=== PATIENT | male | born 1975 | race Caucasian/White ===

== ENCOUNTER 2022-02-09 07:21 | Outpatient (CLI) | payer BC ==
[2022-02-09 14:32] LABS: ALBUMIN 4.2 g/dL (3.2-5.5); ALBUMIN/GLOBULIN RATIO 1.3 (1.0-2.2); ALKALINE PHOSPHATASE 75 IU/L (42-121); ALT ALANINE AMINOTRANSFERASE 46 IU/L (10-60); AST ASPARTATE AMINOTRANSFERASE 28 IU/L (10-42); BUN - BLOOD UREA NITROGEN 13 mg/dL (6-20); CALCIUM 9.1 mg/dL (8.5-10.3); CARBON DIOXIDE - CO2 30 mmol/L (21-32); CHLORIDE 101 mmol/L (101-111); CHOL/HDL RATIO 3.4 (<5.0); CHOLESTEROL 128 mg/dL; CREATININE 1.1 mg/dL (0.6-1.2); GFR - MDRD 73 (>89); GLUCOSE 123 mg/dL (70-100); HDL CHOLESTEROL 38 mg/dL; LDL CHOLESTEROL,CALCULATED 72 mg/dL; LDL/HDL RATIO 1.9 (<3.6); POTASSIUM 3.6 mmol/L (3.5-5.0); SODIUM 139 mmol/L (135-145); TOTAL PROTEIN 7.5 g/dL (6.7-8.2); TRIGLYCERIDES 89 mg/dL; VLDL CHOLESTEROL 18 mg/dL
[2022-02-09 14:35] LABS: CREATININE,URINE 238.5 mg/dL; MICROALBUM/CREATININE RATIO,UR 8.4 ug/mg (<30.0)
[2022-02-09 14:38] LABS: T4 (THYROXINE) 7.24 ug/dL (6.09-12.23)
[2022-02-09 14:43] LABS: THYROID STIMULATING HORMONE 0.54 uIU/mL (0.34-5.60)
[2022-02-09 14:45] LABS: FREE T4 (FREE THYROXINE) 0.87 ng/dL (0.58-1.64)
[2022-02-09 20:01] LABS: ESTIMATED AVERAGE GLUCOSE 126 mg/dL (70-100)
== END 2022-02-09 07:22 | disposition home or self-care (01) ==
LOC: LAB.S 07:21
PROVIDERS: ATTEND Internal Medicine Endocrinology, Diabetes & Metabolism
DX: E11.65 Type 2 diabetes mellitus with hyperglycemia (principal)
CPT/HCPCS: 36415; 80053; 80061; 82043; 82570; 83036; 83721; 84436; 84439; 84443

== ENCOUNTER 2022-03-05 17:19 | Outpatient (CLI) | payer BC | END 2022-03-05 17:20 | disposition home or self-care (01) | LOC: LAB 17:19 | PROVIDERS: ATTEND Internal Medicine Endocrinology, Diabetes & Metabolism | DX: Z53.9 Procedure and treatment not carried out, unspecified reason (principal) ==

== ENCOUNTER 2022-03-05 17:28 | Outpatient (CLI) | payer BC ==
[2022-03-05 17:50] LABS: CALCIUM 9.3 mg/dL (8.5-10.3); CREATININE 1.2 mg/dL (0.6-1.2); POTASSIUM 3.4 mmol/L (3.5-5.0)
== END 2022-03-05 17:29 | disposition home or self-care (01) ==
LOC: LAB 17:28
PROVIDERS: ATTEND Internal Medicine Endocrinology, Diabetes & Metabolism
DX: N28.9 Disorder of kidney and ureter, unspecified (principal)
CPT/HCPCS: 36415; 80048

== ENCOUNTER 2022-06-15 07:09 | Outpatient (CLI) | payer BC ==
[2022-06-15 15:03] LABS: CALCIUM 9.8 mg/dL (8.5-10.3); POTASSIUM 3.8 mmol/L (3.5-5.0)
[2022-06-15 20:57] LABS: ESTIMATED AVERAGE GLUCOSE 123 mg/dL (70-100); HEMOGLOBIN A1c% 5.9 % (4.27-6.07)
== END 2022-06-15 07:10 | disposition home or self-care (01) ==
LOC: LAB.S 07:09
PROVIDERS: ATTEND Nurse Practitioner
DX: E11.9 Type 2 diabetes mellitus without complications (principal)
CPT/HCPCS: 36415; 80048; 83036

== ENCOUNTER 2023-02-05 13:53 | Outpatient (CLI) | payer BC ==
[2023-02-05 20:03] LABS: ALBUMIN/GLOBULIN RATIO 1.6 (1.0-2.2); ALKALINE PHOSPHATASE 67 IU/L (42-121); ALT ALANINE AMINOTRANSFERASE 48 IU/L (10-60); AST ASPARTATE AMINOTRANSFERASE 30 IU/L (10-42); BILIRUBIN,TOTAL 0.5 mg/dL (0.2-1.0); BUN - BLOOD UREA NITROGEN 14 mg/dL (6-20); CALCIUM 9.2 mg/dL (8.5-10.3); CARBON DIOXIDE - CO2 33 mmol/L (21-32); CHLORIDE 103 mmol/L (101-111); CHOL/HDL RATIO 3.6 (<5.0); CHOLESTEROL 122 mg/dL; CREATININE 1.2 mg/dL (0.6-1.3); GFR - MDRD 65 (>89); GLUCOSE 107 mg/dL (74-104); HDL CHOLESTEROL 34 mg/dL; LDL CHOLESTEROL,CALCULATED 50 mg/dL; LDL/HDL RATIO 1.5 (<3.6); POTASSIUM 3.6 mmol/L (3.5-4.5); SODIUM 141 mmol/L (135-145); TOTAL PROTEIN 6.5 g/dL (6.4-8.9); TRIGLYCERIDES 190 mg/dL (48-352); VLDL CHOLESTEROL 38 mg/dL
[2023-02-05 20:35] LABS: ESTIMATED AVERAGE GLUCOSE 126 mg/dL (70-100)
[2023-02-06 11:03] LABS: BASOPHILS % (AUTO) 0.5 %; EOSINOPHILS # (AUTO) 0.4 10^3/uL (0.0-0.7); EOSINOPHILS % (AUTO) 4.9 %; HCT - HEMATOCRIT 30.3 % (42.0-52.0); HGB - HEMOGLOBIN 9.8 g/dL (14.0-18.0); LYMPHOCYTES # (AUTO) 2.3 10^3/uL (1.5-3.5); LYMPHOCYTES % (AUTO) 26.5 %; MEAN CORPUSCULAR HEMOGLOBIN 31.6 pg (27.0-31.0); MEAN CORPUSCULAR HGB CONC 32.3 g/dL (32.0-36.0); MEAN CORPUSCULAR VOLUME 97.7 fL (80.0-94.0); MEAN PLATELET VOLUME 9.6 fL (7.4-11.4); MONOCYTES # (AUTO) 0.9 10^3/uL (0.0-1.0); MONOCYTES % (AUTO) 10.7 %; NEUTROPHILS % (AUTO) 57.1 %; PLT - PLATELET COUNT 435 10^3/uL (130-450); RED CELL DISTRIBUTION WIDTH 15.1 % (12.0-15.0); WHITE BLOOD COUNT 8.8 x10^3/uL (4.8-10.8)
== END 2023-02-05 13:54 | disposition home or self-care (01) ==
LOC: LAB.S 13:53
PROVIDERS: ATTEND Surgery
DX: Z01.812 Encounter for preprocedural laboratory examination (principal); D12.2 Benign neoplasm of ascending colon
CPT/HCPCS: 36415; 80053; 80061; 83036; 83721; 85025

== ENCOUNTER 2023-02-08 03:10 | Emergency (ER) | payer BC ==
--- NOTE | 2023-02-08 03:49 | ED Physician Documentation ---
PD HPI ABD PAIN - Stated complaint Stated Complaint: ABD PX - Chief complaint Chief Complaint: Abd Pain - History obtained from History obtained from: Patient - Additional information Additional information: HPI From patient. Patient c/o episodic, waxing and waning epigastric pain since yesterday, suddenly and significantly worsened tonight (approximately 1 hours [employer] shortly after eating his first large meal since having surgery 10 days ago. THe pain is associated with nausea, vomiting. There are no exacerbating nor ameliorating factors. Ten days ago, patient underwent partial colectomy to remove a large colonic polyp found on colonoscopy. His post-operative pain had been manageable almost entirely without narcotic analgesia (oxycodone), but he tried to take a dose of this tonight due to this pain. He was unable to keep the oxycodone down due to vomiting. Tonight's pain is new; it does not feel like any post-operative discomfort had been experiencing. Review of Systems Constitutional: denies: Fever, Chills, Sweats Cardiac: reports: Reviewed and negative Respiratory: reports: Reviewed and negative GI: reports: Abdominal Pain, Nausea, Vomiting. denies: Abdominal Swelling, Constipation, Diarrhea, Hematemesis, Bloody / black stool PD PAST MEDICAL HISTORY - Past Medical History Past Medical History: Yes Endocrine/Autoimmune: Type 2 diabetes - Past Surgical History Past Surgical History: Yes General: Appendectomy, Bowel surgery - Present Medications Home Medications: Ambulatory Orders Medication Instructions Recorded Confirmed Ondansetron Odt [Zofran Odt] 4 mg TL Q6H PRN #14 tablet 02/08/23 - Allergies Allergies/Adverse Reactions: Allergies Allergy/AdvReac Type Severity Reaction Status Date / Time lisinopril AdvReac Unknown Verified 02/08/23 03:29 - Social History Does the pt smoke?: No Smoking Status: Never smoker Does the pt drink ETOH?: No Does the pt have substance abuse?: No - Immunizations Immunizations are current?: Yes - POLST Patient has POLST: No PD ED PE NORMAL - Vitals Vital signs reviewed: Yes - General General: Alert and oriented X 3, No acute distress, Well developed/nourished - Cardiac Cardiac: RRR, No murmur - Respiratory Respiratory: No respiratory distress, Clear bilaterally - Abdomen Abdomen: Soft, Non distended, Other (intact stapled supraumbilical incision site as well as intact stapled low midline incision site. TTP across upper abdomen , mostly RUQ and epigastric, without guarding or rebound. incision sites are c/d/i) - Derm Derm: Normal color, Warm and dry Results - Vitals Vitals: Oxygen O2 Source Room air - Labs Labs: Laboratory Tests 02/08/23 02/08/23 02/08/23 03:22 03:22 03:22 WBC 9.2 RBC 3.44 L Hgb 10.9 L Hct 33.1 L MCV 96.2 H MCH 31.7 H MCHC 32.9 RDW 15.1 H Plt Count 477 H MPV 9.1 Neut # (Auto) 6.0 Lymph # (Auto) 2.0 Glenn # (Auto) 0.9 Eos # (Auto) 0.3 Baso # (Auto) 0.0 Absolute Nucleated RBC 0.00 Nucleated RBC % 0.0 Sodium 141 Potassium 3.2 L Chloride 102 Carbon Dioxide 30 Anion Gap 9.0 BUN 11 Creatinine 1.1 Estimated GFR (MDRD) 72 L Glucose 143 H Calcium 9.5 Total Bilirubin 1.0 AST 130 H ALT 97 H Alkaline Phosphatase 238 H Total Protein 6.9 Albumin 4.2 Globulin 2.7 Albumin/Globulin Ratio 1.6 Lipase 125 H Urine Color YELLOW Urine Clarity CLEAR Urine pH 6.5 Ur Specific [place] 1.010 Urine Protein NEGATIVE Urine Glucose (UA) NEGATIVE Urine Ketones NEGATIVE Urine Occult Blood NEGATIVE Urine Nitrite NEGATIVE Urine Bilirubin NEGATIVE Urine Urobilinogen 0.2 (NORMAL) Ur Leukocyte Esterase NEGATIVE Ur Microscopic Review NOT INDICATED Urine Culture Comments NOT INDICATED - Rads (name of study) CT A/P with IV contrast Relevant Findings:: Prelim report reviewed, See rad report PD Medical Decision Making - ED course Complexity details: reviewed results, re-evaluated patient, considered differential, d/w patient ED course: Tests ordered and results reviewed by me: CBC (normal WBC, mildly low hgb (10.9)), ER abdominal panel (mild hypokalemia 3.2, lipase mildly elevated 125). Bilirubin is normal at 1.0 although there are mild elevations of AST (130), ALT (97), alkaline phosphatase (238). CT A/P shows multiple gallstones in a mildly distended gallbladder. Given location of pain (epigastric, RUQ), mildly elevated LFTs, and sudden onset after large PO intake, biliary colic is suspect as etiology of patient's symptoms. On reevaluation, afer 1mg IV dilaudid and 1 liter NS, he is resting comfortably in NAD and reports excellent symptom relief; he says he is actually asymptomatic. He is comfortable with d/c home. Results d/w patient and diagnosis of biliary colic also reviewed. US not obtained at this time, as I do not feel it would change diagnosis nor approach (follow up with general surgeon) (he has upcoming GI appointment which could also serve as reevaluation for the gallstones) to r eassess whether the gallstones are felt to be the etiology of tonight's symptoms, and then to discuss treatment options. Departure - Departure Disposition: Home, Self Care Clinical Impression: Biliary colic Condition: Good Instructions: ED Gallstone W Biliary Colic Prescriptions: Ondansetron Odt [Zofran Odt] 4 mg TL Q6H PRN #14 tablet PRN Reason: Nausea / Vomiting Comments: The CT scan of your abdomen shows multiple gallstones in the gallbladder; the gallbladder itself is mildly distended, as well. This finding, combined with the sudden onset of abdominal pain associated with eating a big meal, as well as the location of the pain (upper abdomen) are all suggestive of the gallstones as the cause of the pain you experienced tonight. Some of your liver function tests were mildly abnormal on tonight's test, as well. However, the abnormalities in the liver function tests were not to an extent that her cause for alarm or immediate concern. It is also reassuring that with a single dose of pain medication, you are feeling far more comfortable. It is safe and appropriate to discharge home at this point. However, it is very important that you seek follow-up for reevaluation. Further study, such as ultrasound, might be helpful. Repeat blood test might also be warranted, particularly if your symptoms are recurrent. Certainly, if your symptoms worsen and do not respond to the prescription pain medication you have at home, you should return to the emergency department for reevaluation. The CT scan did not have any findings that indicate that your recent surgery is related to/causing the abdominal pain you are having tonight. I have electronically submitted a prescription for an antinausea medication (ondansetron) to the [facility] in [place]. Forms: PCP List Discharge Date/Time: 02/08/23 07:37
[2023-02-08 03:55] LABS: BASOPHILS % (AUTO) 0.4 %; BILIRUBIN,URINE NEGATIVE (NEGATIVE); EOSINOPHILS # (AUTO) 0.3 10^3/uL (0.0-0.7); EOSINOPHILS % (AUTO) 2.9 %; GLUCOSE, URINE (UA) NEGATIVE (NEGATIVE); HCT - HEMATOCRIT 33.1 % (42.0-52.0); HGB - HEMOGLOBIN 10.9 g/dL (14.0-18.0); KETONES,URINE (UA) NEGATIVE (NEGATIVE); LEUKOCYTE ESTERASE, URINE NEGATIVE (NEGATIVE); LYMPHOCYTES % (AUTO) 22.1 %; MEAN CORPUSCULAR HEMOGLOBIN 31.7 pg (27.0-31.0); MEAN CORPUSCULAR HGB CONC 32.9 g/dL (32.0-36.0); MEAN CORPUSCULAR VOLUME 96.2 fL (80.0-94.0); MEAN PLATELET VOLUME 9.1 fL (7.4-11.4); MONOCYTES # (AUTO) 0.9 10^3/uL (0.0-1.0); MONOCYTES % (AUTO) 9.5 %; NEUTROPHILS % (AUTO) 64.9 %; NITRITE,URINE NEGATIVE (NEGATIVE); OCCULT BLOOD,URINE NEGATIVE (NEGATIVE); PH,URINE 6.5 PH (5.0-7.5); PLT - PLATELET COUNT 477 10^3/uL (130-450); PROTEIN,URINE NEGATIVE (NEGATIVE); RED BLOOD COUNT 3.44 10^6/uL (4.70-6.10); RED CELL DISTRIBUTION WIDTH 15.1 % (12.0-15.0); UROBILINOGEN,URINE 0.2 (NORMAL) E.U./dL (NORMAL); WHITE BLOOD COUNT 9.2 x10^3/uL (4.8-10.8)
[2023-02-08] MEDS ORDERED: SODIUM CHLORIDE 0.9% 1,000 ML IV STA (04:10)
[2023-02-08] MEDS ORDERED: HYDROmorphone 1 MG/ML CARPUJECT IVP STA (04:10)
[2023-02-08 04:23] LABS: ALBUMIN 4.2 g/dL (3.2-5.5); ALBUMIN/GLOBULIN RATIO 1.6 (1.0-2.2); CALCIUM 9.5 mg/dL (8.5-10.3); CREATININE 1.1 mg/dL (0.6-1.3); POTASSIUM 3.2 mmol/L (3.5-4.5); TOTAL PROTEIN 6.9 g/dL (6.4-8.9)
[2023-02-08 04:32] LABS: CLARITY,URINE CLEAR (CLEAR)
[2023-02-08] MEDS ORDERED: iohexoL-300 100 ML VIAL IVP ONE (05:14)
[2023-02-08 06:47] VITALS: BP 130/91; O2SAT 97
--- NOTE | 2023-02-08 07:52 | CT Report ---
PROCEDURE: ABDOMEN/PELVIS W INDICATIONS: abdominal pain CONTRAST: Omni 300 100ml TECHNIQUE: After the administration of IV contrast, 5 mm thick sections acquired from the diaphragms to the symp hysis. 5 mm thick coronal and sagittal reformats were acquired. For radiation dose reduction, the f ollowing was used: automated exposure control, adjustment of mA and/or kV according to patient size. COMPARISON: None. FINDINGS: Image quality: Excellent. Lung bases and heart: Unremarkable. Liver: Normal size. Moderate hepatic steatosis. Gallbladder and biliary tree: There are gallstones. No gallbladder wall thickening or pericholecystic fluid. No biliary dilation. Spleen: No splenomegaly. Pancreas: No pancreatic ductal dilation. Adrenals: No adrenal nodule. Kidneys and ureters: There is a 3 mm nonobstructive stone in the the inferior pole the left kidney. N o hydronephrosis. No renal cystic lesion which requires follow up. No solid mass. Bowel and peritoneum: No bowel distension. No pathologic free fluid. There are postsurgical changes i n the cecum. There is a large amount of stool in colon. Lymph nodes: No central or retroperitoneal adenopathy. Vessels: No infrarenal aortic aneurysm. PELVIS Reproductive organs: Unremarkable. Bladder: No abnormal wall thickening, accounting for underdistension. Pelvic lymph nodes: No pelvic adenopathy by size criteria. Bones: No aggressive osseous abnormality. Severe degenerative disc disease at L5-S1 causing moderate central canal stenosis. Other: No significant ventral or inguinal hernia. IMPRESSION: 1. Cholelithiasis. Consider ultrasound for follow-up. 2. Hepatic steatosis. 3. Postsurgical changes in the right lower quadrant in the area of cecum. 4. A 3 mm nonobstructive stone in the inferior pole of the left kidney. No significant discrepancy with the preliminary interpretation. Reviewed by: Gwendolyn Gordillo MD on 02/08/2023 7:50 AM PDT Approved by: Gwendolyn Gordillo MD on 02/08/2023 7:50 AM PDT Station ID: [id number]
== END 2023-02-08 07:37 | disposition home or self-care (01) ==
LOC: ED 03:10
DX: K80.50 Calculus of bile duct without cholangitis or cholecystitis without obstruction (principal); E11.9 Type 2 diabetes mellitus without complications
CPT/HCPCS: 36415; 74177; 80053; 81003; 83690; 85025; 96361; 96374; 99284; J1170; Q9967; 81001; 87086

== ENCOUNTER 2023-06-15 08:21 | Outpatient (CLI) | payer BC ==
[2023-06-15 10:04] LABS: BUN - BLOOD UREA NITROGEN 15 mg/dL (6-20); CALCIUM 9.2 mg/dL (8.5-10.3); CARBON DIOXIDE - CO2 31 mmol/L (21-32); CHLORIDE 103 mmol/L (101-111); CHOL/HDL RATIO 3.1 (<5.0); CHOLESTEROL 124 mg/dL; CREATININE 0.9 mg/dL (0.6-1.3); GFR - MDRD 91 (>89); GLUCOSE 140 mg/dL (74-104); HDL CHOLESTEROL 40 mg/dL; LDL CHOLESTEROL,CALCULATED 44 mg/dL; LDL/HDL RATIO 1.1 (<3.6); POTASSIUM 3.3 mmol/L (3.5-4.5); SODIUM 140 mmol/L (135-145); TRIGLYCERIDES 202 mg/dL (48-352); VLDL CHOLESTEROL 40 mg/dL
[2023-06-15 10:18] LABS: THYROID STIMULATING HORMONE 0.78 uIU/mL (0.34-5.60)
[2023-06-15 11:51] LABS: ESTIMATED AVERAGE GLUCOSE 197 mg/dL (70-100); HEMOGLOBIN A1c% 8.5 % (4.27-6.07)
== END 2023-06-15 08:22 | disposition home or self-care (01) ==
LOC: DI 08:21
PROVIDERS: ATTEND Internal Medicine Cardiovascular Disease
DX: R00.2 Palpitations (principal); E11.65 Type 2 diabetes mellitus with hyperglycemia; Z13.220 Encounter for screening for lipoid disorders; E66.9 Obesity, unspecified
CPT/HCPCS: 36415; 80048; 80061; 83036; 83721; 84443; 93307

== ENCOUNTER 2023-09-06 07:42 | Outpatient (CLI) | payer BC ==
[2023-09-06 15:48] LABS: ALBUMIN 4.3 g/dL (3.2-5.5); ALBUMIN/GLOBULIN RATIO 1.5 (1.0-2.2); BILIRUBIN,TOTAL 0.4 mg/dL (0.2-1.0); CALCIUM 9.5 mg/dL (8.5-10.3); POTASSIUM 3.6 mmol/L (3.5-4.5); TOTAL PROTEIN 7.1 g/dL (6.4-8.9)
== END 2023-09-06 07:43 | disposition home or self-care (01) ==
LOC: LAB.S 07:42
PROVIDERS: ATTEND Family Medicine
DX: I10 Essential (primary) hypertension (principal)
CPT/HCPCS: 36415; 80053